=== PATIENT | female | born 1990 | race Caucasian/White ===

== ENCOUNTER 2016-12-22 00:13 | Inpatient (IN) | payer OTHER ==
[2016-12-22] MEDS ORDERED: EPSOM SALT 454 GM TP PRN (00:40)
[2016-12-22] MEDS ORDERED: LR 1,000 ML IV PRN (00:40)
[2016-12-22] MEDS ORDERED: TERBUTALINE SULFATE 1 MG/ML VIAL IV PRN (00:40)
[2016-12-22] MEDS ORDERED: OXYTOCIN/RINGERS LACTATE 1,000 ML IV PRN (00:40)
[2016-12-22] MEDS ORDERED: LIDOCAINE 1% 30 ML SDV SC PRN (00:40)
[2016-12-22] MEDS ORDERED: OLIVE OIL 118 ML BTL MISC PRN (00:40)
[2016-12-22] MEDS ORDERED: LIDOCAINE 1% 30 ML SDV ONE (00:50)
[2016-12-22] MEDS ORDERED: TERBUTALINE SULFATE 1 MG/ML VIAL ONE (00:50)
[2016-12-22] MEDS ORDERED: AMMONIA AROMATIC 1 EACH AMP IH ONE (00:50)
[2016-12-22] MEDS ORDERED: OLIVE OIL 118 ML BTL ONE (00:50)
[2016-12-22] MEDS ORDERED: MISOPROSTOL 200 MCG TAB ONE (00:51)
[2016-12-22] MEDS ORDERED: OXYTOCIN 10 UNIT/ML VIAL ONE (00:51)
[2016-12-22 00:53] LABS: % IMMATURE GRANULYOCYTES 0.5 % (0.0-1.1); ABSOLUTE IMMATURE GRANULOCYTES 0.06 10^3/uL (0.00-0.10); ADD DIFF? NO; ADD MORPH? NO; ADD SCAN? NO; ATYPICAL LYMPHOCYTE FLAG 10 (0-99); FRAGMENT RBC FLAG 0 (0-99); HEMATOCRIT 39.6 % (38.0-47.0); LEFT SHIFT FLG 10 (0-99); LIPEMIA HEMOLYSIS FLAG 90 (0-99); MEAN CELL HEMOGLOBIN CONCENTR. 35.4 g/dL (32.4-36.7); MEAN PLATELET VOLUME 10.8 fL (8.7-11.7); PLATELET CLUMPS FLAG 0 (0-99); PLATELET COUNT 140 10^3/uL (150-400); RED BLOOD CELL COUNT 4.66 10^6/uL (4.18-5.33); RED CELL DISTRIBUTION WIDTH 13.9 % (11.5-15.2)
--- NOTE | 2016-12-22 02:04 | OBPROG ---
OBG Progress Note Assessment/Plan: Assessment: cat1 fhr intermittant monitoring pain well managed contractions q2-3 c/o of back pain tub for pain relief Plan: expectant management of labor 12/22/16 02:02 Subjective: Coping well through the contractions. Tub to assist with pain relief. + bloody show. + movement. Srom clear fluid. Objective: 12/22/16 00:45 Patient ABO/Rh A POSITIVE 12/22/16 00:45 - SVE Dilation (cm): 8 Effacement (%): 100 Station: -1 Current Contraction Pattern: Regular FHR (bpm): 135 FHR Pattern Variability: Moderate FHR Category: 1 Membranes: SROM Amniotic Fluid Color: Clear - Physical Exam General Appearance: WD/WN, alert, no apparent distress Respiratory: chest non-tender, lungs clear, normal breath sounds Cardiac/Chest: regular rate, rhythm Abdomen: normal bowel sounds Membranes: SROM Amniotic Fluid Color: clear Extremities: normal range of motion, Umbetro's sign (negative bilaterally) DTR- Lower Extremities: Knee (R): 1+, Knee (L): 1+ (no clonus bilaterally) Skin: normal color, warm/dry Neuro/Psych: no motor/sensory deficits, alert, normal mood/affect, oriented x 3 ICD10 Worksheet Patient Problems: Problems Problem Status Onset term labor Acute
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
[2016-12-22] MEDS ORDERED: ACETAMINOPHEN 325 MG TAB PO PRN (04:53)
[2016-12-22] MEDS ORDERED: SIMETHICONE 80 MG TAB CHEW PO PRN (04:53)
[2016-12-22] MEDS ORDERED: HYDROCORTISONE 0.5% CREAM TP PRN (04:53)
[2016-12-22] MEDS ORDERED: HYDROCODONE/APAP 5/325 TAB PO PRN (04:53)
[2016-12-22] MEDS: IBUPROFEN 600 MG TAB PO PRN ×4 (04:56→20:55)
--- NOTE | 2016-12-22 04:56 | OBPROC ---
- Labor and Delivery Onset of Contractions Date: 12/21/16 Onset of Contractions Time: 17:00 Onset of Contractions Type: Spontaneous Rupture of Membranes Date: 12/22/16 Rupture of Membranes Time: 02:58 Rupture of Membranes Type: Artificial Amniotic Fluid Color: Clear Dilation Complete Time: 03:16 Delivery Type: Spontaneous Placenta Delivery Date: 12/22/16 Placenta Delivery Time: 04:18 Episiotomy/Laceration: 2nd Degree Repair: 3-0, Vicryl, Other (Specify) (left periurethral no repair) EBL: 350 Complications: None - Medications Labor Augmentation/Induction Meds Used: None Anesthesia: Local (Specify) - Info Infant A Delivery Date: 12/22/16 Delivery Time: 04:12 Sex of : Female Score (1 Min): 8 Score (5 Min): 9
[2016-12-22] MEDS: DOCUSATE SODIUM 100 MG CAP PO PRN ×2 (09:42→20:58)
--- NOTE | 2016-12-22 11:09 | SOAPPROG ---
SOAP Progress Note Assessment/Plan: Assessment: PPD 1/2 with this am Plan: routine pp care 12/22/16 11:08 Subjective: Pt doing well. Bld is like heavy menses. Baby has latched well. urinated ok. bottom is sore. no rest yet. Objective: Laboratory Results 12/22/16 00:45 12/21/16 12/22/16 12/23/16 05:59 05:59 05:59 Output Total 350 Balance -350 Physical Exam - Physical Exam General Appearance: WD/WN Abdomen: non-tender, soft, other (FF at umb -1) Pelvic Exam: vaginal bleeding (normal lochia) Extremities: non-tender, pedal edema (minimal) Neuro/Psych: normal mood/affect ICD10 Worksheet Patient Problems: Problems Problem Status Onset (spontaneous vaginal delivery) Acute term labor Acute
[2016-12-22 21:07] VITALS: RESP 16; O2SAT 95
[2016-12-23] MEDS: IBUPROFEN 600 MG TAB PO PRN ×4 (03:28→23:38)
[2016-12-23] MEDS: DOCUSATE SODIUM 100 MG CAP PO PRN (09:31)
--- NOTE | 2016-12-23 10:26 | SOAPPROG ---
SOAP Progress Note Assessment/Plan: Assessment: ppd# 1 s/p breast feeding Plan: routine post care 12/23/16 10:24 Subjective: patient is doing well. pain is well controlled. normal lochia. working on breast feeding. denies headache and changes in vision. ambulating. voiding without difficulty. no issues. Objective: Vital Signs Temp Pulse Resp BP Pulse Ox 36.5 C 60 16 91/57 L 95 12/22/16 20:00 12/22/16 20:00 12/22/16 20:00 12/22/16 20:00 12/22/16 20:00 Laboratory Results 12/22/16 00:45 12/22/16 12/23/16 12/24/16 05:59 05:59 05:59 Output Total 350 Balance -350 Physical Exam - Physical Exam General Appearance: WD/WN, alert, no apparent distress Respiratory: chest non-tender, lungs clear, normal breath sounds Cardiac/Chest: normal peripheral pulses, regular rate, rhythm Abdomen: normal bowel sounds, non-tender, soft, other (fundus firm and non tender) Skin: normal color, warm/dry Extremities: normal range of motion, non-tender, normal inspection, normal capillary refill Neuro/Psych: no motor/sensory deficits, alert, normal mood/affect, oriented x 3 ICD10 Worksheet Patient Problems: Problems Problem Status Onset (spontaneous vaginal delivery) Acute term labor Acute
[2016-12-24] MEDS: IBUPROFEN 600 MG TAB PO PRN (09:37)
[2016-12-24] MEDS: DOCUSATE SODIUM 100 MG CAP PO PRN (09:37)
--- NOTE | 2016-12-24 12:26 | SOAPPROG ---
SOAP Progress Note Assessment/Plan: Assessment: ppd# 2 s/p breast feeding Plan: routine post care discharge instructions 12/24/16 12:24 Subjective: patient is doing well. pain is well controlled. normal lochia. breast feeding is going well. denies headache and changes in vision. reviewed discharge instructions. will be in [place] until 8 weeks post . will be driving. discussed compression socks. Objective: Vital Signs Temp Pulse Resp BP Pulse Ox 36.3 C 73 16 112/71 95 12/23/16 19:45 12/23/16 19:45 12/23/16 19:45 12/23/16 19:45 12/23/16 19:45 Laboratory Results 12/24/16 03:55 12/23/16 12/24/16 12/25/16 05:59 05:59 05:59 Output Total 350 Balance -350 Physical Exam - Physical Exam General Appearance: WD/WN, alert, no apparent distress Respiratory: chest non-tender, lungs clear, normal breath sounds Cardiac/Chest: normal peripheral pulses, regular rate, rhythm Abdomen: normal bowel sounds, non-tender, soft, other (fundus firm and non tender) Skin: normal color, warm/dry Extremities: normal range of motion, non-tender, normal inspection, normal capillary refill Neuro/Psych: no motor/sensory deficits, alert, normal mood/affect, oriented x 3 ICD10 Worksheet Patient Problems: Problems Problem Status Onset (spontaneous vaginal delivery) Acute term labor Acute
[2016-12-24 13:01] VITALS: BP 99/59; PULSE 77; TEMP 97.7
== END 2016-12-24 14:00 | disposition home or self-care (01) | DRG 775 ==
LOC: FLD 00:13 → OBSVTOIN 00:13 → FOB 06:31
PROVIDERS: ADMIT Obstetrics & Gynecology; ATTEND Obstetrics & Gynecology
DX: O70.1 Second degree perineal laceration during delivery (principal); O99.284 Endocrine, nutritional and metabolic diseases complicating childbirth; E03.9 Hypothyroidism, unspecified; Z3A.39 39 weeks gestation of pregnancy; Z37.0 Single live birth
CPT/HCPCS: J3105